=== PATIENT | male | born 1995 ===

== ENCOUNTER 2018-11-30 22:16 | Emergency (ER) | payer SELFPAY ==
--- NOTE | 2018-11-30 22:27 | EDPHY ---
H & P Time Seen by Provider: 11/30/18 22:20 HPI/ROS: CHIEF COMPLAINT: Medical screening for [facility] HISTORY OF PRESENT ILLNESS: 23 year old male arrives via police after being kicked out of a bar. He admits to heavy alcohol use. He is complaining of right shoulder pain reproducible range of motion but denies direct trauma or fall. Denies paresthesia. Denies sensory or motor deficits. Denies chest pain. He notes recent "cupping" on his back a few days ago. PRIMARY CARE PROVIDER: REVIEW OF SYSTEMS: 10 systems reviewed and negative with the exception of the elements mentioned in the history of present illness PAST MEDICAL/SURGICAL HISTORY: no anticoagulant use, no relevant medical/ surgical history SOCIAL HISTORY: Positive for alcohol use this evening PHYSICAL EXAM 1) GENERAL: Well-developed, well-nourished, alert and oriented. Appears to be in no acute distress. Answering questions appropriately. 2) HEAD: Normocephalic, abrasion to frontal region with no hematoma. 3) HEENT: Pupils equal, round, reactive to light bilaterally. Negative Horners. Nasopharynx, oropharynx, clear. No deformity or angulation of nose. No septal hematoma. No rhinorrhea. No oral trauma. Ears bilaterally with normal tympanic membranes. No hemotympanum. No fluid or blood in the external auditory canal. No raccoon eyes. No Baez sign. Teeth are normally aligned with no gross malocclusion, TMJ bilaterally nontender, facial bones nontender including the zygomatic arch, maxilla mandible. 4) NECK: No cervical collar is on. Posterior cervical spine is nontender, no stepoff, no effusion. Full range of motion which does not elicit any midline cervical spine pain, no posterior midline tenderness, no step-off. 5) LUNGS: Clear to auscultation bilaterally, no wheezes, no rhonchi, no retractions. No obvious signs of trauma. No chest wall pain. No flaring, no grunting. Moving symmetrically. No crepitus. 6) HEART: [Regular rate and rhythm, 7) ABDOMEN: No guarding, no rebound, no focal tenderness, no peritoneal signs, no signs of trauma, no ecchymosis 8) MUSCULOSKELETAL: Right upper extremity: No visible signs of trauma, full range of motion. With extremes of abduction the patient does complain of anterior shoulder pain however there is no step-off knee is normal anatomic landmarks. No axillary nerve dysfunction. Brisk pulses distally. Soft compartments. Otherwise Moving all extremities, no focal areas of tenderness, no obvious trauma. 9) BACK: Lesions consistent with cupping on his back noted. No midline vertebral tenderness, no fluctuance, no step-off, no obvious trauma, no visual or palpable abnormality. 10) SKIN: No laceration. DIFFERENTIAL DIAGNOSIS: In no particular order including but not limited to fracture, sprain, strain, dislocation Constitutional: Initial Vital Signs Temperature (C) 36.7 C 11/30/18 22:24 Heart Rate 117 H 11/30/18 22:24 Respiratory Rate 16 11/30/18 22:24 Blood Pressure 145/83 H 11/30/18 22:24 O2 Sat (%) 98 11/30/18 22:24 O2 Delivery Mode Room Air Allergies/Adverse Reactions: egg Allergy (Verified 11/30/18 22:22) animal fat Allergy (Uncoded 11/30/18 22:22) Home Medications: Medication Instructions Recorded Adderall 10 MG (*) 11/30/18 Doxepin HCl 11/30/18 Lamotrigine 11/30/18 Zoloft 100mg (*) 11/30/18 Medical Decision Making ED Course/Re-evaluation: 10:27 p.m.: Patient is answering questions appropriately. He is noted to have abrasion to his frontal region and mild complaints of right shoulder pain reproducible range of motion. Although he has full active range of motion with no deficits. No visible signs of trauma. At this time think the patient can be discharged [facility]. He has been informed that he will need follow-up with orthopedics regarding his right shoulder as injury to the right shoulder is not ruled out. I do not think that x-ray definitively indicated at this time in absence of direct trauma. This injury however may be related to non osseous structure injury and he may necessitate non emergent, outpatient MRI. He has no evidence of vascular compromise or compartment syndrome. Care of patient under supervision of secondary supervising physician Dr Garcia . Departure - Departure Disposition: Home, Routine, Self-Care Clinical Impression: Alcohol abuse Condition: Good Instructions: Abuse of Alcohol (ED) Referrals: [facility] [Outside] - As per Instructions
[2018-11-30 22:29] VITALS: BP 145/83
== END 2018-11-30 22:35 | disposition home or self-care (01) ==
DX: F10.129 Alcohol abuse with intoxication, unspecified (principal)